=== PATIENT | male | born 1960 | race Caucasian/White ===

== ENCOUNTER → 2019-12-22 09:49 | Outpatient (BNVA) | payer MEDICARE, SELFPAY | PROVIDERS: Visit Provider Family Medicine Adult Medicine | DX: G62.9 Polyneuropathy, unspecified (principal); I10 Essential (primary) hypertension; Z00.00 Encounter for general adult medical examination without abnormal findings; K21.9 Gastro-esophageal reflux disease without esophagitis | CPT/HCPCS: 80053; 80061; 84153; 84443; 85025 ==

== ENCOUNTER → 2020-01-13 10:58 | Outpatient (BNVA) | payer MEDICARE, SELFPAY | PROVIDERS: PCP Family Medicine Adult Medicine; Visit Provider Family Medicine Adult Medicine | DX: R94.4 Abnormal results of kidney function studies (principal); I10 Essential (primary) hypertension; G62.9 Polyneuropathy, unspecified | CPT/HCPCS: 80069; 82043 ==

== ENCOUNTER → 2021-05-09 13:39 | Outpatient (BNVA) | payer MEDICARE, OTHER, SELFPAY | PROVIDERS: PCP Family Medicine Adult Medicine; Visit Provider Nurse Practitioner | DX: M25.511 Pain in right shoulder (principal) | CPT/HCPCS: 73030 ==

== ENCOUNTER → 2021-05-10 08:41 | Outpatient (BNVA) | payer MEDICARE, OTHER, SELFPAY | PROVIDERS: PCP Family Medicine Adult Medicine; Visit Provider Family Medicine Adult Medicine | DX: Z00.00 Encounter for general adult medical examination without abnormal findings (principal); I10 Essential (primary) hypertension; R94.4 Abnormal results of kidney function studies; M19.011 Primary osteoarthritis, right shoulder; Z13.6 Encounter for screening for cardiovascular disorders | CPT/HCPCS: 80053; 84443; 85025; 85651 ==

== ENCOUNTER → 2021-06-08 10:25 | Outpatient (BNVA) | payer MEDICARE, OTHER, SELFPAY | PROVIDERS: PCP Family Medicine Adult Medicine; Referring Provider Nurse Practitioner; Visit Provider Orthopaedic Surgery | DX: M19.011 Primary osteoarthritis, right shoulder (principal); M54.12 Radiculopathy, cervical region | CPT/HCPCS: 72040 ==

== ENCOUNTER 2021-08-04 10:23 | Outpatient (CLI) | payer MEDICARE, OTHER, SELFPAY ==
--- NOTE | 2021-08-04 11:00 | MR_ITS ---
WS: [id number] MRI CERVICAL SPINE NONCONTRAST HISTORY: pain, chronic pain down RIGHT shoulder. COMPARISON: None available. Technique: Multiplanar, multisequence noncontrast imaging of the cervical spine. Posterior alignment is normal. Less than 2 mm retrolisthesis of C3. No marrow edema or fracture. Signal within the cervical cord is normal. Visualized posterior fossa is unremarkable. Craniocervical junction, C1 and C2 relationship, odontoid process and soft tissues are normal. C2-C3: Normal. C3-C4: Small bilateral foraminal osteophytes, LEFT greater than RIGHT with no stenosis. C4-C5: Tiny central disc protrusion with small foraminal osteophytes. No stenosis. C5-C6: Mild diffuse osteophytic ridging and annular disc bulge. Small central disc protrusion with bi lateral foraminal disc osteophyte complexes. Mild encroachment upon the ventral thecal sac. Mild cent ral with at least moderate bilateral foraminal stenosis. Slightly greater encroachment upon the RIGHT C6 nerve root. C6-C7: Mild annular disc bulging and osteophytic ridging. Osteophyte encroaches into the foramina bib aterally but greatest on the LEFT. The LEFT C7 nerve root is being displaced and stretched. Minimal c entral with mild RIGHT and moderate LEFT foraminal stenosis. C7-T1: Small disc osteophyte complex proximal RIGHT foramen does not appear to be causing any signifi cant stenosis. Paraspinal soft tissue are normal. MR/MR cervical spin wo con* [id number] IMPRESSION: 1. Small central disc protrusion at C5-6. 2. Mild central with moderate bilateral foraminal stenosis at C5-6 due to disc osteophyte disease, slightly greater encroachment upon the RIGHT C6 nerve root . 3. Mild central and RIGHT foraminal stenosis with moderate LEFT foraminal sten osis at C6-7. Disc osteophyte encroachment upon the LEFT C7 nerve root. 4. Very small disc osteophyte proximal RIGHT foramen at C7-T1.
== END 2021-08-04 10:24 | disposition home or self-care (01) ==
PROVIDERS: PCP Family Medicine Adult Medicine; Visit Provider Orthopaedic Surgery
DX: M54.12 Radiculopathy, cervical region (principal); M25.511 Pain in right shoulder; M50.222 Other cervical disc displacement at C5-C6 level; M48.02 Spinal stenosis, cervical region
CPT/HCPCS: 72141

== ENCOUNTER → 2021-08-16 11:00 | Outpatient (BNVA) | payer MEDICARE, SELFPAY | PROVIDERS: PCP Family Medicine Adult Medicine; Referring Provider Orthopaedic Surgery; Visit Provider Orthopaedic Surgery | DX: M54.12 Radiculopathy, cervical region (principal) | CPT/HCPCS: 72040; 99204 ==

== ENCOUNTER → 2022-01-17 12:34 | Outpatient (BNVA) | payer MEDICARE, SELFPAY | PROVIDERS: PCP Family Medicine Adult Medicine; Visit Provider Internal Medicine Cardiovascular Disease | DX: R07.9 Chest pain, unspecified (principal); R00.2 Palpitations; R06.02 Shortness of breath; R29.818 Other symptoms and signs involving the nervous system; F17.210 Nicotine dependence, cigarettes, uncomplicated; I10 Essential (primary) hypertension; I45.10 Unspecified right bundle-branch block; K21.9 Gastro-esophageal reflux disease without esophagitis; J43.9 Emphysema, unspecified | CPT/HCPCS: 93005; 93225; 99204 ==

== ENCOUNTER 2022-02-19 02:09 | Emergency (ER) | payer MEDICARE, SELFPAY ==
[2022-02-19 02:19] VITALS: BP 175/76; PULSE 61; RESP 14; O2SAT 100; BMI 22.9
--- NOTE | 2022-02-19 02:25 | XRR_ITS ---
PROCEDURE INFORMATION: Exam: XR Chest Exam date and time: 02/19/2022 2:52 AM Age: 61 years old Clinical indication: Pain; Chest pressure; Additional info: Cp TECHNIQUE: Imaging protocol: Radiologic exam of the chest. Views: 1 view. COMPARISON: CR (C SPINE LAT, CSPINE, C-SPINE LAT) 08/16/2021 11:00 AM FINDINGS: Lungs: Normal lung volumes. No interstitial or airspace opacities. A few scattered punctate calcified granulomas are seen. Pleural spaces: No pleural effusion. No pneumothorax. Heart/Mediastinum: Normal heart size. There is a mildly tortuous thoracic aorta. Midline trachea. Bones/joints: No acute abnormalities. XR/XR chest 1V portable [id number] IMPRESSION: No chest radiographic evidence of acute cardiopulmonary disease.
[2022-02-19 02:30] VITALS: BP 134/73; PULSE 64; RESP 14; O2SAT 99
--- NOTE | 2022-02-19 02:33 | ECG_ITS ---
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 Measurements Intervals [place] Rate: 63 P: -43 NH: 165 QRS: 52 QRSD: 108 T: 55 QT: 416 QTc: 427 Interpretive Statements SINUS RHYTHM INCOMPLETE RIGHT BUNDLE BRANCH BLOCK [90+ ms QRS DURATION, TERMINAL R IN V1/V2, 40+ ms S IN I/aVL/V4/V5/V6] No previous ECG available for comparison Electronically Signed On 02-19-2022 20:02:16 TYPE CASTER by Cody Thomson M.D. [email or web address] residential centerIndustry Divemer[facility].[employer]/store/OM/[id number]
[2022-02-19 02:44] LABS: Basophils % 0.3 %; Eosinophils % 0.5 %; Hematocrit 44.6 % (42.0-52.0); Hemoglobin 15.1 g/dL (11.7-16.6); Lymphocytes # 3.1 10^3/uL (0.8-4.8); Lymphocytes % 39.2 %; Mean Corpuscular HGB Conc 33.9 g/dL (30.0-36.0); Mean Corpuscular Hemoglobin 30.9 pg (28.0-34.0); Mean Corpuscular Volume 91.2 fl (80-94); Mean Platelet Volume 10.2 fL (7.4-10.4); Monocytes # 0.6 10^3/uL (0.2-0.9); Monocytes % 7.1 %; Neutrophils # 4.17 10^3/uL (1.8-7.7); Neutrophils % 52.6 %; Nucleated Red Blood Cells % 0 %; Platelet Count 248 10^3/cmm (130-400); Red Blood Count 4.89 10^6/uL (4.1-5.3); Red Cell Distribution Width 13.2 % (12.1-15.1); White Blood Count 7.9 10^3/uL (4.0-10.0)
[2022-02-19 02:55] LABS: INR 0.92 (0.8-1.2)
[2022-02-19 03:08] LABS: D Dimer <= 0.27 ug/mIFEU (0-0.59)
[2022-02-19] MEDS: ondansetron 2 mg/ML SDV 2 mL 4 MG IVP (03:11)
[2022-02-19] MEDS: morphine 4 mg/mL SDV 1 mL IVP (03:11)
[2022-02-19 03:12] LABS: Troponin(5th) Baseline 6 ng/L (0-15)
[2022-02-19 03:22] LABS: Alanine Aminotransferase 11 U/L (0-41); Albumin Level 4.4 g/dL (3.5-5.2); Alkaline Phosphatase 60 U/L (40-130); Blood Urea Nitrogen 15 mg/dL (8-23); Calcium 8.9 mg/dL (8.5-10.5); Carbon Dioxide 25 mmol/L (22-29); Chloride 102 mmol/L (98-107); Creatine Phosphokinase 318 U/L (39-308); Globulin 2.1 g/dL (1.3-4.6); Glomerular Filtration Rate 85.2 mL/min (90-130); Glucose 114 mg/dL (65-115); NT Pro B Type Natriuretic Pept 83 pg/mL (0-125); Osmolality Calculated 288 mOsm/kg (285-295); Sodium 138 mmol/L (136-145); Total Bilirubin 0.3 mg/dL (0.15-1.2); Total Protein 6.5 g/dL (6.6-8.7)
[2022-02-19 03:29] LABS: Anion Gap 14.5 (5-19); Aspartate Amino Transferase 16 U/L (0-40); Potassium 3.5 mmol/L (3.5-5.1)
[2022-02-19] MEDS: lidocaine 2% viscous 15 ML, aluminum-mag hydrox-simethicon 30 ML, sucralfate oral liq 1 GM PO (03:52)
--- NOTE | 2022-02-19 04:27 | ECG_ITS ---
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 Measurements Intervals [place] Rate: 54 P: -13 MO: 163 QRS: 48 QRSD: 109 T: 61 QT: 456 QTc: 433 Interpretive Statements SINUS BRADYCARDIA INCOMPLETE RIGHT BUNDLE BRANCH BLOCK [90+ ms QRS DURATION, TERMINAL R IN V1/V2, 40+ ms S IN I/aVL/V4/V5/V6] MINIMAL ST DEPRESSION [0.025+ mV ST DEPRESSION] Compared to ECG 02/19/2022 02:33:45 ST (T wave) deviation now present Sinus rhythm no longer present Electronically Signed On 02-19-2022 20:22:22 ACCESS COORDINATOR by Cody Thomson M.D. [email or web address].[email or web address]/OM/[id number]
[2022-02-19 04:34] LABS: Troponin 5 2HR 6.69 ng/L (0-15)
[2022-02-19 05:08] LABS: Troponin 5 2HR Delta 0.69 ABS# (0-10)
[2022-02-19 05:23] VITALS: BP 171/93; PULSE 59; RESP 18; O2SAT 99
--- NOTE | 2022-02-19 16:12 | W.ED.CHESTPA ---
HPI - Chest Pain General: Chief Complaint: Chest Pain Stated Complaint: CP, palps, high bp Time Seen by Provider: 02/19/22 02:25 Source: patient History of Present Illness: 61 year old gentleman with a history of hypertension. He has experienced palpitations and some chest discomfort on and off for the past couple of weeks. He had a holter monitor placed at one point, and cardiology had given him a call following. They told him he was experiencing ?extra beats? and started him on metoprolol, but the patient only took one dose. He states that it made him feel unsteady, dizzy, with vision changes etcetera. since that time, he had increased episodes of chest discomfort. Tonight this episode did not go away. Pain is in the anterior and left chest. He is mildly short of breath. No fever, no significant change in cough or sputum production. MD complaint: chest pain Pertinent past history: other Onset (ago): hour(s) Timing of current episode: episodic Prior episodes: Yes Onset: during rest Pain location: substernal and left chest Pain radiation: none Quality: tightness and sharp Relieving factors: nothing Exacerbating factors: nothing Associated symptoms: Reports dyspnea and palpitations; Deny abdominal pain, diaphoresis, fever(s) or vomiting Review of Systems Const: Denies: fever(s) or diaphoresis Card: Reports: chest pain and palpitations Resp: Reports: dyspnea GI: Denies: abdominal pain or vomiting [facility] ED PFSH: Medical History Chest pain at rest Cigarette smoker Decreased calculated GFR Dental caries Depression Emphysema lung GERD (gastroesophageal reflux disease) HTN (hypertension) Hx of fracture of femur Neuropathy Osteoarthritis of right shoulder Shortness of breath on exertion Small fiber neuropathy Smokers' cough smoker since age 14 y/o Wellness examination Surgical History History of shoulder surgery History of surgery on right wrist Family History Family/Other Hypertension Father CAD (coronary artery disease) Other Diabetes Social History Smoking and tobacco status: current every day smoker cigarettes Packs smoked per day: 1 Years cigarettes smoked: 40 Alcohol intake: never Current occupational status: disabled Physical Exam Const: COMMON NORMALS: no acute distress GENERAL APPEARANCE: cooperative; not ill appearing and not frail appearing HENMT: COMMON NORMALS: normocephalic, atraumatic and Normal external nose present HEAD & SCALP: normocephalic and atraumatic FACE & SINUS: normal facial exam and face symmetric NOSE: Normal external nose present Eye: COMMON NORMALS: Equal, round and reactive pupils present and EOMs intact bilaterally PUPIL: Yes Equal, round and reactive pupils present Neck/C-Spine: GENERAL: Yes trachea midline Chest: CHEST: Yes Symmetrical chest wall rise Resp: COMMON NORMALS: normal respiratory effort, No retractions, No use of accessory muscles and clear to auscultation bilaterally AUSCULTATION: clear to auscultation bilaterally Cardio: COMMON NORMALS: regular rate and regular rhythm RATE: regular rate RHYTHM: regular rhythm GI: COMMON NORMALS: Normal to inspection, nondistended, normoactive bowel sounds present Extremity: COMMON NORMALS: no pedal edema Neuro: ANA LUISA COMA SCALE: document GCS findings Marquand coma scale eye opening: Spontaneous Ana Luisa coma scale verbal response: Orientated Marquand coma scale motor response: Obey commands Ana Luisa coma scale total score: 15 SENSORY EXAM: Yes extremities (intact) Psych: COMMON NORMALS: speech normal SPEECH: Yes normal speech Skin: COMMON NORMALS: no rashes or lesions noted GENERAL SKIN EXAM: no rashes or lesions noted Course Vital Signs: Vital signs: Vital Signs Pulse Rate 59 L 02/19/22 05:23 Respiratory Rate 18 02/19/22 05:23 Blood Pressure 171/93 02/19/22 05:23 Pulse Oximetry 99 02/19/22 05:23 MDM - Chest Pain Medical Decision Making EKG shows sinus rhythm with normal axis. There is an incomplete right bundle branch block. Rate is 60. No St wave changes. His chest X-ray is normal period and other laboratory is not remarkable including a troponin of 6 at hour zero, with a two hour delta of 0.69. Patient was counseled regarding his results, with the unlikelihood of ischemic pain. He is asked to follow up with cardiology. We have ordered an outpatient nuclear stress test for the patient, and have asked case management to help us set this up. He knows to return for any worsening symptoms in the meantime. Lab Data 02/19/22 02:39 02/19/22 02:39 Radiology Impressions Chest X-Ray 02/19/22 02:25 IMPRESSION: No chest radiographic evidence of acute cardiopulmonary disease. Laboratory Results WBC 7.9 10^3/uL (4.0-10.0) 02/19/22 02:39 RBC 4.89 10^6/uL (4.1-5.3) 02/19/22 02:39 Hgb 15.1 g/dL (11.7-16.6) 02/19/22 02:39 Hct 44.6 % (42.0-52.0) 02/19/22 02:39 MCV 91.2 fl (80-94) 02/19/22 02:39 MCH 30.9 pg (28.0-34.0) 02/19/22 02:39 MCHC 33.9 g/dL (30.0-36.0) 02/19/22 02:39 RDW 13.2 % (12.1-15.1) 02/19/22 02:39 Plt Count 248 10^3/cmm (130-400) 02/19/22 02:39 MPV 10.2 fL (7.4-10.4) 02/19/22 02:39 Neut % (Auto) 52.6 % 02/19/22 02:39 Lymph % (Auto) 39.2 % 02/19/22 02:39 [place] % (Auto) 7.1 % 02/19/22 02:39 Eos % (Auto) 0.5 % 02/19/22 02:39 Baso % (Auto) 0.3 % 02/19/22 02:39 Neut # (Auto) 4.17 10^3/uL (1.8-7.7) 02/19/22 02:39 Lymph # (Auto) 3.1 10^3/uL (0.8-4.8) 02/19/22 02:39 [place] # (Auto) 0.6 10^3/uL (0.2-0.9) 02/19/22 02:39 Eos # (Auto) 0.0 10^3/uL (0.0-0.8) 02/19/22 02:39 Baso # (Auto) 0.0 10^3/uL (0.0-0.1) 02/19/22 02:39 Nucleated RBC % (auto) 0 % 02/19/22 02:39 Nucleated RBCs # 0.0 /100WBC 02/19/22 02:39 PT 12.70 SECONDS (12.1-14.9) 02/19/22 02:39 INR 0.92 (0.8-1.2) 02/19/22 02:39 D-Dimer <= 0.27 ug/mIFEU (0-0.59) 02/19/22 02:39 Sodium 138 mmol/L (136-145) 02/19/22 02:39 Potassium 3.5 mmol/L (3.5-5.1) 02/19/22 02:39 Chloride 102 mmol/L (98-107) 02/19/22 02:39 Carbon Dioxide 25 mmol/L (22-29) 02/19/22 02:39 Anion Gap 14.5 (5-19) 02/19/22 02:39 BUN 15 mg/dL (8-23) 02/19/22 02:39 Creatinine 0.9 mg/dL (0.7-1.2) 02/19/22 02:39 GFR Calculation 85.2 mL/min (90-130) L 02/19/22 02:39 Glucose 114 mg/dL (65-115) 02/19/22 02:39 Calculated Osmolality 288 mOsm/kg (285-295) 02/19/22 02:39 Calcium 8.9 mg/dL (8.5-10.5) 02/19/22 02:39 Total Bilirubin 0.3 mg/dL (0.15-1.2) 02/19/22 02:39 AST 16 U/L (0-40) 02/19/22 02:39 ALT 11 U/L (0-41) 02/19/22 02:39 Alkaline Phosphatase 60 U/L (40-130) 02/19/22 02:39 Creatine Kinase 318 U/L (39-308) H 02/19/22 02:39 Troponin T Baseline 6 ng/L (0-15) 02/19/22 02:39 Troponin T 120 Minute 6.69 ng/L (0-15) 02/19/22 04:01 Delta Troponin T 0.69 ABS# (0-10) 02/19/22 04:01 NT-Pro-B Natriuret Pep 83 pg/mL (0-125) 02/19/22 02:39 Total Protein 6.5 g/dL (6.6-8.7) L 02/19/22 02:39 Albumin 4.4 g/dL (3.5-5.2) 02/19/22 02:39 Globulin 2.1 g/dL (1.3-4.6) 02/19/22 02:39 Discharge Plan Discharge Patient Disposition: Home Clinical Impression: Chest pain Condition: Stable Prescriptions: No Action losartan 25 mg tablet 25 mg PO DAILY Qty: 90 2RF ibuprofen 200 mg tablet 200 mg PO Q6H PRN metoprolol succinate 25 mg tablet extended release 24 hr 25 mg PO DAILY Qty: 90 3RF Discharge Orders: Discharge ED (Routine); Ordered 02/19/22 Ordered By: Maninder Chaudhary Referrals: Manoj Martinez MD [Primary Care Provider] - 1-3 days Patient Instructions: Chest Pain (ED) Activity Restrictions/Additional Instructions: Return for return of or worsening chest discomfort, repeated episodes of syncope or passing out, worsening shortness of breath, other concerning symptoms. Call your doctor Sunday morning for a follow-up appointment. There may be further outpatient testing needed. Coding Level of Care Code ED Internal Investigator for Charli Gamino
== END 2022-02-19 05:24 | disposition home or self-care (01) ==
PROVIDERS: Emergency Provider Emergency Medicine; PCP Family Medicine Adult Medicine
DX: R07.9 Chest pain, unspecified (principal); J43.9 Emphysema, unspecified; I10 Essential (primary) hypertension; F17.210 Nicotine dependence, cigarettes, uncomplicated
CPT/HCPCS: 71045; 80053; 82550; 83880; 84484; 85025; 85378; 85610; 93005; 96374; 96375; 99285; J2270; J2405

== ENCOUNTER → 2022-03-01 08:12 | Outpatient (BNVA) | payer MEDICARE, SELFPAY | PROVIDERS: PCP Family Medicine Adult Medicine; Visit Provider Nurse Practitioner Family | DX: I49.9 Cardiac arrhythmia, unspecified (principal); I10 Essential (primary) hypertension; R00.2 Palpitations; R06.02 Shortness of breath; R07.9 Chest pain, unspecified; F17.210 Nicotine dependence, cigarettes, uncomplicated | CPT/HCPCS: 93270; 99214 ==

== ENCOUNTER 2022-03-28 08:00 | Outpatient (CLI) | payer MEDICARE, SELFPAY | END 2022-03-28 08:01 | disposition home or self-care (01) | LOC: SLEEP 03-29 09:41 | PROVIDERS: PCP Family Medicine Adult Medicine; Visit Provider Internal Medicine Cardiovascular Disease | DX: R06.83 Snoring (principal); R53.83 Other fatigue; G47.33 Obstructive sleep apnea (adult) (pediatric) | CPT/HCPCS: G0399 ==

== ENCOUNTER 2022-04-13 07:14 | Outpatient (CLI) | payer MEDICARE, SELFPAY ==
[2022-04-13 08:26] VITALS: BMI 22.9
--- NOTE | 2022-04-13 08:27 | ECG_ITS ---
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 Interpretive Statements NAME OF STUDY: LEXISCAN SESTAMIBI STRESS TEST INDICATION: Chest Pain; Palpitations; RBBB PROCEDURE: At the baseline, the EKG revealed sinus bradycardia at a rate of 49 bpm. Poor R wave progression. The baseline heart was 52 bpm with a blood pressue of 153/102 mm of Hg Lexiscan was infused over a period of 20 seconds. A total of 0.4 milligrams of Lexiscan was infused. The stress phase was continued for a total of 5 minutes. Heart rate at the end of the stress phase was 72 bpm with a blood pressure 141/73 mm of Hg. The EKG at the peak infusion revealed no significant changes. Sestamibi was injected 20 seconds after the Lexiscan infusion. Heart rate at the end of the recovery phase was 70 bpm with a blood pressure of 134/63 mm of Hg. CONCLUSION: 1. No significant EKG changes with the LexiScan infusion 2. No LexiScan induced chest pain or cardiac arrhythmia 3. Normal blood pressure and heart rate response 4. Sestamibi/sestamibi perfusion scan pending; see separate report. Electronically Signed On 04-15-2022 16:41:29 UNSTACKER by Cody Thomson M.D. [id number]
--- NOTE | 2022-04-13 08:28 | NMCV_ITS ---
NM lizzie perf SPECT r/s* [id number] Lex Stuart Age: 61 Gender: M : 1960 Exam Date: 04/13/2022 08:59 Ordering Phys: Giselle Avila Technologist: MARTI Severino Exam Location: [facility] Indications: CARDIAC ARRHYTHMIA STRESS TEST Please see separate stress test report in [facility] for full findings IMAGE PROTOCOL Rest/Stress 1 Lexiscan Day Radiopharmaceutical Dose (mCi) Administration Site Administered by Rest: Tc-99m 10.7 IV MARTI Tellez Sestamibi Stress:Tc-99m 32.7 IV MARTI Tellez Sestamibi Rest: 04/13/2022 60 Discovery 630 Stress: 04/13/2022 30 Discovery 630 0.4mg Lexiscan. Images obtained in supine and prone position. SPECT RESULTS Technical Quality: Excellent Raw Data Analysis: Normal Image Corrections: No attenuation or motion correction applied Summed Stress Score: 0 Summed Rest Score: 2 Summed Difference Score: 0 PERFUSION FINDINGS Slightly decreased tracer uptake was noted in the inferior wall region. Attenuation artifacts also were noted in this region. FUNCTIONAL RESULTS (calculated via Gated SPECT) Stress Image LV EF (%): 65 Stress EDV (mL):155 TID: 1.11 Stress ESV (mL):54 FUNCTIONAL FINDINGS: Segmental wall motion analysis revealing no gross wall motion abnormalities IMPRESSIONS 1. Myocardial perfusion imaging revealing small area of slightly decreased tracer uptake in the inferior wall region with no significant reversibility, suggesting myocardial scarring versus attenuation artifact. 2. Normal LV ejection fraction of 65%. 3. LV wall motion analysis revealing no gross wall motion abnormalities. 4. Mildly dilated LV cavity with an end-systolic volume of 54 ml. Low probability for coronary ischemia, based on the above findings Dr Cody Thomson MD FACC (Electronically Signed) Final Date: 13 April 2022 13:04 S
[2022-04-13] MEDS: regadenoson 0.4 Mg/5 ml Syringe IVP (09:45)
[2022-04-13 10:14] VITALS: BP 153/74; PULSE 73
== END 2022-04-13 07:15 | disposition home or self-care (01) ==
PROVIDERS: PCP Family Medicine Adult Medicine; Visit Provider Nurse Practitioner Family
DX: I49.9 Cardiac arrhythmia, unspecified (principal)
CPT/HCPCS: 36415; 78452; 93017; 96374; A9500; J2785

== ENCOUNTER 2022-12-03 10:05 | Emergency (ER) | payer MEDICARE, MEDICAID, SELFPAY ==
[2022-12-03 10:10] VITALS: BP 189/97; PULSE 69; RESP 16; TEMP 36.7; O2SAT 99; BMI 22.9
--- NOTE | 2022-12-03 10:21 | W.ED.EXTPRO ---
HPI - Extremity Problem General: Chief complaint: Extremity Injury, Upper Stated complaint: Lt index fingertip lac Time Seen by Provider: 12/03/22 10:06 History of Present Illness: Lex Stuart is a [id number] male that presents to the emergency department with complaints of injury to his left index finger. Patient states that last night he was cutting a roast beef when he cut the tip of his finger off. Patient arrives with the wound dressed with gauze. Patient's medical history includes some sort of arrhythmia, tobacco user, emphysema, GERD, hypertension, neuropathy Associated symptoms: Deny chest pain, fever(s) or rash Review of Systems General: Reports: 10 or more systems reviewed and unremarkable except in HPI and below Const: Denies: fever(s), chills, change in appetite, change in weight, fatigue or malaise Card: Denies: chest pain, palpitations, irregular heart rhythm, edema, dyspnea on exertion, orthopnea or leg pain with exertion Resp: Denies: dyspnea, productive cough, non-productive cough, wheezing, stridor or chest congestion GI: Denies: abdominal pain, nausea, vomiting, dysphagia, diarrhea, constipation, bloating, GI cramping or hematochezia : Denies: flank pain, dysuria, urinary frequency, urinary urgency, urinary hesitancy, oliguria or hematuria Musc: Denies: neck pain, back pain, extremity pain, joint pain, joint swelling, joint redness, joint warmth or muscle weakness Skin/Breast: Denies: rash, pruritus, erythema, photosensitivity or new lesions Neuro: Denies: headache(s), numbness in extremities, weakness in extremities, sensory changes, lack of coordination, difficulty walking, frequent falls, dizziness, confusion, Slurred speech present, difficulty communicating thoughts, seizure-like activity or involuntary movements Endo: Denies: polyuria, polydipsia or tired all the time Santiago/Lymph: Denies: easy bruising or easy bleeding PFSH ED PFSH: Medical History Arrhythmia Cigarette smoker Decreased calculated GFR Dental caries Depression Emphysema lung GERD (gastroesophageal reflux disease) HTN (hypertension) Hx of fracture of femur Neuropathy IHSAN on CPAP Osteoarthritis of right shoulder Right cervical radiculopathy Shortness of breath on exertion Small fiber neuropathy Smokers' cough smoker since age 14 y/o Wellness examination Surgical History History of shoulder surgery History of surgery on lower extremity History of surgery on right wrist Family History Family/Other Hypertension Father CAD (coronary artery disease) Other Diabetes Social History Smoking and tobacco/nicotine status: current every day tobacco/nicotine user cigarettes Packs smoked per day: 1 Years cigarettes smoked: 40 Alcohol intake: never Substance/Drug Use: never Current occupational status: disabled Physical Exam Const: COMMON NORMALS: no acute distress, patient oriented x3 and alert GENERAL APPEARANCE: cooperative ORIENTATION/CONSCIOUSNESS: Yes awake Eye: COMMON NORMALS: Equal, round and reactive pupils present, EOMs intact bilaterally and no scleral icterus PUPIL: Yes Equal, round and reactive pupils present Neck/C-Spine: COMMON NORMALS: full ROM GENERAL: Yes normal visual inspection Resp: COMMON NORMALS: normal respiratory effort, No retractions and No use of accessory muscles EFFORT & INSPECTION: Yes able to speak in complete sentences and Yes symmetric chest movement Cardio: COMMON NORMALS: regular rate and regular rhythm RATE: regular rate RHYTHM: regular rhythm GI: COMMON NORMALS: Normal to inspection, nondistended, normoactive bowel sounds present Extremity: COMMON NORMALS: normal to inspection NARRATIVE EXTREMITY EXAM: Left upper extremity: Patient has a clean avulsion of the soft tissue to the tip of the index finger of the left hand. It is soft tissue only. No exposed bone. There is no involvement with the nail The excised tissue is gone. No flap available GENERAL: Yes normal exam except as noted Neuro: COMMON NORMALS: patient oriented x3 SENSORIUM/ORIENTATION: Yes alert Psych: COMMON NORMALS: mental status grossly normal, cooperative, denies homicidal ideation and denies suicidal ideation Skin: COMMON NORMALS: no rashes or lesions noted GENERAL SKIN EXAM: no rashes or lesions noted Course Vital Signs: Vital signs: Vital Signs Temperature 98.0 F 12/03/22 10:10 Pulse Rate 88 12/03/22 10:26 Respiratory Rate 16 12/03/22 10:10 Blood Pressure 189/97 12/03/22 10:10 Pulse Oximetry 99 12/03/22 10:10 Oxygen Delivery Me thod Room Air 12/03/22 10:10 MDM - Extremity (Nontraumatic) Medical Decision Making Patient was evaluated in the emergency department after he injured the left index finger. The soft tissue was avulsed off the tip of the left index finger. Bupivacaine 0.5 was used for digital block. After adequate anesthesia was achieved, we prepared the wound for cleaning. Materials/dressing placed prior to arrival was removed and we cleansed the area with saline and Betadine. Soaking for 2 minutes. The Betadine irrigation was cleansed off with saline. The wound was dressed with Xeroform and a 4 x 4 and then placed in a protective aluminum splint and wrapped with tube gauze. Patient was given 4 x 4's and Xeroform along with the tube gauze to do dressing changes at home. This is going to be very tender and I have advised him to use gentle soap and water when cleansing the wound. No radiology studies performed this visit Discharge Plan Discharge Patient Disposition: Home Clinical Impression: Avulsion of fingertip Condition: Stable Prescriptions: New cephalexin 500 mg capsule 500 mg PO BID 7 Days Qty: 14 0RF diclofenac-misoprostol 75-200 mg-mcg tablet,IR,delayed rel,biphasic 1 tab PO BID Qty: 14 0RF No Action ibuprofen 200 mg tablet 200 mg PO Q6H PRN (Reason: Pain) magnesium oxide 400 mg magnesium tablet 400 mg PO DAILY potassium 99 mg tablet PO (DME) Home CPAP auto titrating set to 6-16 See Rx Instructions .Route .MEDSUPPLY Qty: 1 0RF Rx Instructions: As directed, auto titrating at 6 to 16 cm pressure losartan 25 mg tablet 25 mg PO DAILY Qty: 90 2RF Discharge Orders: Discharge ED (Routine); Ordered 12/03/22 Or[facility]: [facility] Referrals: Manoj Martinez MD [Primary Care Provider] - Discharge Diet: Advance as tolerated Discharge Activity: Resume usual activity Patient Instructions: Cephalexin (By mouth) (Bio-Cef, Keflex), Diclofenac/Misoprostol (By mouth), Finger Laceration (ED), Pain Management Activity Restrictions/Additional Instructions: Keep the dressings clean and dry Dressing changes twice a day using materials provided Take your antibiotics as prescribed Take the diclofenac as prescribed. While taking this do not take additional ibuprofen, naproxen, Advil, Aleve Coding Level of Care Code ED Dope Pourer for Charli Gamino
[2022-12-03 10:26] VITALS: PULSE 88
[2022-12-03] MEDS: tetanus-dipt-pertussis 0.5 mL SDV IM (10:29)
[2022-12-03] MEDS: BUPivacaine 0.5% INJ 10 mL INJECTION (10:31)
[2022-12-03] MEDS: cephALEXin 500 mg Capsule PO (11:03)
[2022-12-03 11:08] VITALS: BP 189/97; PULSE 69; RESP 16; TEMP 36.7; O2SAT 99
== END 2022-12-03 11:13 | disposition home or self-care (01) ==
PROVIDERS: Emergency Provider Nurse Practitioner; PCP Family Medicine Adult Medicine
DX: S61.201A Unspecified open wound of left index finger without damage to nail, initial encounter (principal); F17.210 Nicotine dependence, cigarettes, uncomplicated; J43.9 Emphysema, unspecified; I10 Essential (primary) hypertension; W26.0XXA Contact with knife, initial encounter; Y93.G1 Activity, food preparation and clean up; Z23 Encounter for immunization
CPT/HCPCS: 90715; 99284; 99291; J3490

== ENCOUNTER → 2023-03-21 10:40 | Outpatient (BNVA) | payer MEDICARE, MEDICAID, SELFPAY | PROVIDERS: PCP Family Medicine Adult Medicine; Visit Provider Nurse Practitioner Family | DX: M79.672 Pain in left foot (principal); M19.072 Primary osteoarthritis, left ankle and foot | CPT/HCPCS: 73630 ==

== ENCOUNTER → 2023-04-05 07:56 | Outpatient (BNVA) | payer MEDICARE, MEDICAID, SELFPAY | PROVIDERS: PCP Family Medicine Adult Medicine; Visit Provider Family Medicine Adult Medicine | DX: R00.2 Palpitations (principal); I10 Essential (primary) hypertension; M72.2 Plantar fascial fibromatosis; M19.011 Primary osteoarthritis, right shoulder | CPT/HCPCS: 80053; 80061; 84443; 85025; 86140 ==

== ENCOUNTER 2023-04-20 06:48 | Outpatient (CLI) | payer MEDICARE, MEDICAID, SELFPAY ==
--- NOTE | 2023-04-20 07:15 | US_ITS ---
WS: [id number] Complete ABDOMINAL ULTRASOUND HISTORY: dumping syndrome COMPARISON: None available. Liver: 14.5 cm in length. Normal size liver and echogenicity. No bile duct dilatation or mass. Portal Vein: Normal hepatopetal flow with monophasic waveform. Gallbladder: Normally distended gallbladder with no stones or wall thickening. CBD: 0.5 cm Pancreas: Mild atrophy. Limited visualization. Right kidney: 10.1 cm x 4.8 x 5.0 cm. Cortex:1.0 cm. Normal size kidney. No hydronephrosis or solid mass. Simple cyst central kidney 1.5 x 1.3 x 1.2 cm. Left kidney: 11.3 cm x 5.2 cm x 5.9 cm. Cortex: 1.0 cm. Normal size and echogenicity. No hydronephrosis or mass. Spleen: 8.2 cm. Normal. Aorta and IVC: Unremarkable abdominal aorta and IVC. Impression: 1. Normal gallbladder. 2. Simple RIGHT renal cyst with a maximal diameter of 1.5 cm. 3. No bile duct dilatation. 4. No hydronephrosis.
--- NOTE | 2023-04-20 08:00 | CT_ITS ---
WS: [id number] LDCT LUNG CANCER SCREENING HISTORY: screening in smoker TECHNIQUE: Axial imaging performed from the apices to 1 cm below the costophrenic angles. Coronal and sagittal reformats are submitted with axial MIP series. All CT scans at [facility] use at least one of these dose optimization techniques: automated exposure control; mA and/or kV adjustment per patient size (includes targeted exams where dose is matched to clinical indication); or iterativ e reconstruction. DLP: 69.00 mGy.cm DIvol: Mean CTDIvol: 1.00 (mGy) COMPARISON: None available. Diagnostic quality: Satisfactory Lungs: Mild hyperinflation with paraseptal and centrilobular emphysema. Calcified 5 mm nodule LEFT up per lobe. 3 mm micronodule RIGHT lower lobe, image 255 of series 5. No endobronchial lesions. Heart: Normal size heart with no pericardial effusion.. Other findings: No adenopathy identified. Mediastinum is difficult to visualize well without IV contr ast. Very mild atherosclerosis aorta. Small hiatal hernia. No adrenal mass. RIGHT renal cyst identifi ed on the same day by ultrasound. IMPRESSION: CT/CT lung screening [id number] LUNG-RADS: 2-Benign Appearance or Behavior FOLLOW UP: 12 Month: Continue annual screening with LDCT OTHER FINDINGS (S MODIFIER): None.
== END 2023-04-20 06:49 | disposition home or self-care (01) ==
LOC: RAD 06:49
PROVIDERS: PCP Family Medicine Adult Medicine; Visit Provider Family Medicine Adult Medicine
DX: Z12.2 Encounter for screening for malignant neoplasm of respiratory organs (principal); K90.49 Malabsorption due to intolerance, not elsewhere classified; J43.2 Centrilobular emphysema; R91.1 Solitary pulmonary nodule; F17.210 Nicotine dependence, cigarettes, uncomplicated; K91.1 Postgastric surgery syndromes
CPT/HCPCS: 71271; 76700

== ENCOUNTER → 2024-04-10 14:36 | Outpatient (BNVA) | payer MEDICARE, SELFPAY | PROVIDERS: PCP Family Medicine; Visit Provider Family Medicine | DX: I10 Essential (primary) hypertension (principal); N40.0 Benign prostatic hyperplasia without lower urinary tract symptoms; R00.2 Palpitations | CPT/HCPCS: 80053; 80061; 84153 ==

== ENCOUNTER 2024-12-16 09:34 | Outpatient (CLI) | payer MEDICARE, SELFPAY ==
--- NOTE | 2024-12-16 10:00 | CT_ITS ---
WS: [id number] LDCT LUNG CANCER SCREENING HISTORY: screening TECHNIQUE: Axial imaging performed from the apices to 1 cm below the costophrenic angles. Coronal and sagittal reformats are submitted with axial MIP series. All CT scans at [facility] use at least one of these dose optimization techniques: automated exposure control; mA and/or kV adjustment per patient size (includes targeted exams where dose is matched to clinical indication); or iterative reconstruction. DLP: 62.09 mGy.cm DIvol: Mean CTDIvol: 1.00 (mGy) COMPARISON: 12/11/2024 Diagnostic quality: Satisfactory Lungs: Moderate pulmonary hyperinflation with paraseptal and centrilobular emphysema. There are a few scattered benign granulomata and micronodules throughout both lungs. There are a few small perifissural nodules. No enlarging mass or nodule. No endobronchial lesion or pneumonia. Linear atelectasis in the lingula and LEFT lower lobe. Heart: Normal size heart with no pericardial effusion.. Other findings: Mild atherosclerosis aorta. No adenopathy identified. Lymph nodes would be difficult to identify without IV contrast. Small hiatal hernia. CT/CT lung screening [id number] IMPRESSION: LUNG-RADS: 2-Benign Appearance or Behavior FOLLOW UP: 12 Month: Continue annual screening with LDCT OTHER FINDINGS (S MODIFIER): None.
== END 2024-12-16 09:35 | disposition home or self-care (01) ==
PROVIDERS: PCP Family Medicine; Visit Provider Family Medicine
DX: F17.219 Nicotine dependence, cigarettes, with unspecified nicotine-induced disorders (principal); Z12.2 Encounter for screening for malignant neoplasm of respiratory organs; J43.9 Emphysema, unspecified; R91.8 Other nonspecific abnormal finding of lung field; J84.10 Pulmonary fibrosis, unspecified; J98.11 Atelectasis; K44.9 Diaphragmatic hernia without obstruction or gangrene
CPT/HCPCS: 71271